=== PATIENT | female | born 1990 | race Two or more races ===

== ENCOUNTER 2017-07-28 09:55 | Emergency (ER) | payer MEDICAID ==
[2017-07-28 10:06] VITALS: RESP 16
[2017-07-28] MEDS ORDERED: LIDOCAINE 2% VISCOUS 15 ML UDCUP PO ONE (10:48)
[2017-07-28] MEDS ORDERED: HYOSCYAMINE SULFATE 0.125 MG TAB PO ONE (10:48)
[2017-07-28] MEDS ORDERED: NS 1,000 ML IV ONE (10:48)
[2017-07-28] MEDS ORDERED: FAMOTIDINE 20 MG TAB PO ONE (10:48)
[2017-07-28] MEDS ORDERED: MAG HYDROX/AL HYDROX/SIMETH 30 ML UDCUP PO ONE (10:48)
--- NOTE | 2017-07-28 10:49 | EDPHY ---
General - History Smoking Status: Former smoker Narrative: CHIEF COMPLAINT: Epigastric pain, nausea, paresthesia, shortness of breath HISTORY OF PRESENT ILLNESS: Patient complains of epigastric pain, nausea, tingling of the right arm, shortness of breath. Symptoms have been present for several days. They are gradual onset constant duration. Now rated severe. It is worse with palpation of the epigastrium and the right side of the ribs. No urinary complaints. No flank pain or fever. She has recently moved from [place] and not yet established with anyone. No improvement with [id number] medications. No other associated complaints or modifying factors. REVIEW OF SYSTEMS: Ten systems reviewed and are negative unless otherwise noted in the HPI PCP: None yet SPECIALISTS: None PAST MEDICAL HISTORY: No ongoing diagnoses PAST SURGICAL HISTORY: No recent surgeries SOCIAL HISTORY: Nonsmoker. No alcohol. Occasional drug use. Recently moved from [place] for [employer] FAMILY HISTORY: Noncontributory EXAMINATION General Appearance: Alert, no distress Head: normocephalic, atraumatic Eyes: Pupils equal and round, no conjunctival pallor or injection ENT, Mouth: Mucous membranes moist. airway patent. Neck: Normal inspection, supple, non-tender Respiratory: Lungs are clear to auscultation No wheezing, rhonchi or crackles Cardiovascular: Regular rate and rhythm. No murmur Gastrointestinal: Abdomen is soft and nondistended. There is tenderness in the epigastrium and into the right costal margin. Pain out of portions of examination. No guarding. No tympany. No CVA tenderness. Back: non-tender, no bony abnormalities Neurological: GCS 15. A&O, nonfocal, normal gait. Strength is symmetric in all 4 limbs. Skin: Warm and dry, no rash no petechiae or purpura Extremities: Nontender, no pedal edema Psychiatric: Mood and affect normal DIFFERENTIAL DIAGNOSES: Including but not limited to gastritis, pancreatitis, cholecystitis, cholelithiasis, costochondritis, PE, pneumonia MDM: 10:45 a.m. Epigastric abdominal pain with shortness of breath, nausea, right arm paresthesia, anxiety. Patient is well-appearing and nontoxic. Her vital signs are stable. Her pain is completely reproducible with palpation of the epigastrium and deep breath. She has no evidence of cardiac involvement by my examination. I have ordered laboratory studies, EKG, chest x-ray and medications for possible gastritis. She is in no acute distress. 11:40 a.m. CBC and chemistry unremarkable. HCG is pending. 12:00 p.m. Patient re-evaluated. HCG is negative but at 2.38. She still having right- sided pain but now pressing to the right lower intercostal muscles in the mid axillary line. Chest x-ray is unremarkable. Laboratory studies unremarkable. She felt somewhat improved with GI cocktail and Pepcid. I feel that this is a reproducible intercostal costochondritis type pain. But she is concerned because she has had multiple recent travels and just relocated from [place]. She is requesting D-dimer and I have ordered this. I have also ordered oral pain medication. 1:20 p.m. There was difficulty obtaining the patient's D-dimer as the blood in lab had clotted. A new blue top was drawn and her D-dimer is not negative. I re- evaluated the patient at this time. She is resting comfortably with ongoing complaints of pain. This does appear to be reproducible to me in the right intercostal and subcostal region. I will treat her for gastritis and costochondritis. I will provide the on-call primary care physician for to establish with as she recently moved here. We discussed ED precautions. She is comfortable this plan and discharged home stable condition. SUPERVISION: Patient was independently examined, but I discussed the case with my secondary supervising physician Dr. Martinez ([facility]) The patient was evaluated and managed by the physician roofer assistant. I have reviewed this chart and I agree with the findings and plan of care as documented , as indicated by my signature. I am the secondary supervising physician. ( Noemy Martinez) - Diagnostics Imaging Results: Imaging Impressions Chest X-Ray 07/28/17 10:47 Impression: Hypoventilation. Otherwise negative. - Objective Vital Signs: Initial Vital Signs Temperature (C) 37.1 C 07/28/17 10:01 Heart Rate 63 07/28/17 10:01 Respiratory Rate 16 07/28/17 10:01 Blood Pressure 99/56 L 07/28/17 10:01 O2 Sat (%) 98 07/28/17 10:01 O2 Delivery Mode Room Air Allergies/Adverse Reactions: No Known Allergies Allergy (Unverified 07/28/17 10:01) Home Medications: Medication Instructions Recorded Acetaminophen/Codeine 300/30Mg 1 each PO Q6 PRN #11 tab 07/28/17 [Tylenol #3 (*)] Famotidine [Pepcid 20 MG (*)] 20 mg PO BID #14 tab 07/28/17 Ondansetron Odt [Zofran Odt 4 mg 4 mg PO Q6 PRN #12 tab 07/28/17 (*)] Laboratory Results: Laboratory Results 07/28/17 10:30 07/28/17 10:30 07/28/17 07/28/17 07/28/17 12:58 10:30 10:30 WBC 8.47 10^3/uL 10^3/uL (3.80-9.50) RBC 6.38 10^6/uL H 10^6/uL (4.18-5.33) Hgb 10.3 g/dL L g/dL (12.6-16.3) Hct 32.4 % L % (38.0-47.0) MCV 50.8 fL L fL (81.5-99.8) MCH 16.1 pg L pg (27.9-34.1) MCHC 31.8 g/dL L g/dL (32.4-36.7) RDW 21.2 % H % (11.5-15.2) Plt Count 302 10^3/uL 10^3/uL (150-400) MPV TNP Neut % (Auto) 54.3 % % (39.3-74.2) Lymph % (Auto) 32.9 % % (15.0-45.0) Glenn % (Auto) 9.3 % % (4.5-13.0) Eos % (Auto) 2.5 % % (0.6-7.6) Baso % (Auto) 0.6 % % (0.3-1.7) Nucleat RBC Rel Count 0.2 % % (0.0-0.2) Absolute Neuts (auto) 4.60 10^3/uL 10^3/uL (1.70-6.50) Absolute Lymphs (auto) 2.79 10^3/uL 10^3/uL (1.00-3.00) Absolute Monos (auto) 0.79 10^3/uL 10^3/uL (0.30-0.80) Absolute Eos (auto) 0.21 10^3/uL 10^3/uL (0.03-0.40) Absolute Basos (auto) 0.05 10^3/uL 10^3/uL (0.02-0.10) Absolute Nucleated RBC 0.02 10^3/uL H 10^3/uL (0-0.01) Immature Gran % 0.4 % % (0.0-1.1) Immature Gran # 0.03 10^3/uL 10^3/uL (0.00-0.10) Platelet Estimate ADEQUATE (ADEQ) Polychromasia 1+ H Hypochromasia 2+ H Microcytic Cells 1+ H Target Cells 1+ H Oval Macrocytes 1+ H Elliptocytes 1+ H Schistocytes 1+ H Smear Review By Pending D-Dimer < 0.27 ug/mLFEU ug/mLFEU (0.00-0.50) Sodium 145 mEq/L mEq/L (135-145) Potassium 4.3 mEq/L mEq/L (3.5-5.2) Chloride 106 mEq/L mEq/L (97-110) Carbon Dioxide 20 mEq/l L mEq/l (22-31) Anion Gap 19 mEq/L H mEq/L (8-16) BUN 9 mg/dL mg/dL (7-23) Creatinine 0.7 mg/dL mg/dL (0.6-1.0) Estimated GFR > 60 Glucose 73 mg/dL mg/dL (70-100) Calcium 9.9 mg/dL mg/dL (8.5-10.4) Total Bilirubin 0.7 mg/dL mg/dL (0.1-1.4) Conjugated Bilirubin 0.4 mg/dL mg/dL (0.0-0.5) Unconjugated Bilirubin 0.3 mg/dL mg/dL (0.0-1.1) AST 25 IU/L IU/L (14-46) ALT 32 IU/L IU/L (9-52) Alkaline Phosphatase 50 IU/L IU/L (38-126) Total Protein 7.6 g/dL g/dL (6.3-8.2) Albumin 4.6 g/dL g/dL (3.5-5.0) Lipase 131 IU/L IU/L (23-300) Beta HCG, Quant < 2.39 mIU/mL mIU/mL (0.00-4.83) Medications Given: Discontinued Medications Al Hydroxide/Mg Hydroxide (Maalox Susp) 30 ml PO ONCE ONE Stop: 07/28/17 10:49 Last Admin: 07/28/17 11:15 Dose: 30 ml Famotidine (Pepcid) 20 mg PO EDNOW ONE Stop: 07/28/17 10:49 Last Admin: 07/28/17 11:15 Dose: 20 mg Hyoscyamine Sulfate (Levsin, Hyomax-Sl) 0.25 mg PO ONCE ONE Stop: 07/28/17 10:49 Last Admin: 07/28/17 11:15 Dose: 0.25 mg Sodium Chloride (Ns) 1,000 mls @ 0 mls/hr IV EDNOW ONE; Wide Open PRN Reason: Protocol Stop: 07/28/17 10:49 Last Admin: 07/28/17 11:14 Dose: 1,000 mls Lidocaine (Lidocaine 2% Viscous) 15 ml PO ONCE ONE Stop: 07/28/17 10:49 Last Admin: 07/28/17 11:15 Dose: 15 ml Oxycodone/Acetaminophen (Percocet 5/325) 2 tab PO EDNOW ONE Stop: 07/28/17 12:09 Last Admin: 07/28/17 12:38 Dose: 2 tab Departure - Departure Disposition: Home, Routine, Self-Care Clinical Impression: Epigastric pain, Costochondritis, acute Condition: Good Referrals: Tate Freedman DO [Doctor of Osteopathy] - As per Instructions Stand Alone Forms: Narcotic Guidelines, Statement of Treatment Prescriptions: Acetaminophen/Codeine 300/30Mg [Tylenol #3 (*)] 1 each PO Q6 PRN #11 tab PRN Reason: Pain, Mild Famotidine [Pepcid 20 MG (*)] 20 mg PO BID #14 tab Ondansetron Odt [Zofran Odt 4 mg (*)] 4 mg PO Q6 PRN #12 tab PRN Reason: Nausea/Vomiting, Use 1st
--- NOTE | 2017-07-28 10:59 | CPEKG ---
Heart Rate: 56 RR Interval: 1071 P-R Interval: 156 QRSD Interval: 76 QT Interval: 452 QTC Interval: 437 P [place]: 31 QRS [place]: 29 T Wave [place]: 12 EKG Severity - BORDERLINE ECG - EKG Impression: SINUS RHYTHM EKG Impression: BORDERLINE T ABNORMALITIES, ANTERIOR LEADS Electronically Signed By: Gunnar Croft 02-Aug-2017 10:38:17
[2017-07-28] MEDS ORDERED: ONDANSETRON 4 MG/2 ML VIAL ONE (11:12)
[2017-07-28 11:22] LABS: PLATELET COUNT 302 10^3/uL (150-400)
[2017-07-28] MEDS ORDERED: OXYCODONE/APAP 5/325 TAB PO ONE (12:08)
[2017-07-28 12:22] VITALS: O2SAT 97
[2017-07-28 13:56] VITALS: BP 128/82; PULSE 68; TEMP 98.6
== END 2017-07-28 13:56 | disposition home or self-care (01) ==
DX: R10.13 Epigastric pain (principal); M94.0 Chondrocostal junction syndrome [Tietze]; E86.9 Volume depletion, unspecified; Z87.891 Personal history of nicotine dependence
CPT/HCPCS: J2405